=== PATIENT | female | born 1995 | race Hispanic/Latino ===

== ENCOUNTER 2022-12-15 11:56 | Emergency (ER) | payer BC, SELFPAY ==
[2022-12-15 12:06] VITALS: BP 158/109; PULSE 85; RESP 18; TEMP 37; O2SAT 96
--- NOTE | 2022-12-15 13:05 | ECG_ITS ---
Measurements Intervals [place]millan Rate: 67 P: 3 MA: 131 QRS: 28 QRSD: 89 T: 18 QT: 391 QTc: 413 Interpretive Statements SINUS RHYTHM MINIMAL Q WAVES- HIGH LATERAL LEADS BORDERLINE ECG NO PREVIOUS ECG AVAILABLE FOR COMPARISON Electronically Signed On 12-15-2022 14:03:34 CDT by Bin Bhatia D.O.
--- NOTE | 2022-12-15 13:05 | ED.ABDPAIN ---
HPI - Abdominal Pain General Chief Complaint: Abdominal Pain Stated Complaint: Nausea, chills, abd pain Time Seen by Provider: 12/15/22 12:43 History of Present Illness HPI narrative: 27-year-old female with a history of depression, PTSD presenting with several months of abdominal pain. Patient states that since July she has had intermittent abdominal pain and nausea and vomiting. States that sometimes she gets extremely lightheaded with these episodes and she will also have chills. States that last night she threw up and it was reddish in color but she states that she ate Tums just prior. States that this made her nervous so she came in for evaluation. She does not have a PCP and she has never seen GI. Currently she has some epigastric discomfort and nausea. No fevers or chills, chest pain, shortness of breath, cough, dysuria, hematuria, diarrhea, constipation. States that her LMP was approximately 1 week ago. No abnormal vaginal discharge or bleeding. Related Data Allergies Allergy/AdvReac Type Severity Reaction Status Date / Time No Known Allergies Allergy Verified 12/15/22 12:23 Review of Systems Review of Systems: All systems reviewed & are unremarkable except as noted in HPI and below Exam Narrative: GENERAL: Well-appearing, well-nourished, and in no acute distress. HEAD: Normocephalic, atraumatic. EYES: PERRLA and EOMI. ENT: Nares clear, no rhinorrhea or epistaxis. Mucous membranes moist. NECK: Supple. CHEST: Clear to auscultation. No respiratory distress. HEART: Regular rate and rhythm ABDOMEN: Soft, mild epigastric tenderness, no guarding or rebound EXTREMITIES: Normal range of motion. No edema. SKIN: Warm, dry, no rash. NEURO: No focal deficits. Alert and oriented x3. PSYCH: Normal mood and affect. Course Vital Signs Vital signs: Vital Signs Temperature 98.6 F 12/15/22 12:06 Pulse Rate 85 12/15/22 12:06 Respiratory Rate 18 12/15/22 12:06 Blood Pressure 158/109 H 12/15/22 12:06 Pulse Oximetry 96 12/15/22 12:06 Oxygen Delivery Room Air 12/15/22 12:06 Temperature 98.6 F 12/15/22 12:06 Pulse Rate 85 12/15/22 12:06 Respiratory Rate 18 12/15/22 12:06 Blood Pressure 158/109 H 12/15/22 12:06 Pulse Oximetry 96 12/15/22 12:06 Oxygen Delivery Room Air 12/15/22 12:06 MDM - Abdominal Pain MDM Narrative Medical decision making narrative: 27-year-old female presenting with 6 months of intermittent abdominal pain and nausea and vomiting. Patient is hypertensive, otherwise vitals are within normal limits. Exam is remarkable for the above. Plan for basic labs, fluids, IV Zofran and Pepcid. Likely discharge with PCP and GI follow-up. EKG per my interpretation shows normal sinus rhythm, normal axis and intervals, no ST elevations or depressions. Normal QTc. Blood work with mild leukocytosis. UA is contaminated. She denies any urinary symptoms. There is 4+ blood and some protein, patient states that she is at the end of her cycle. Advised that she follow-up with primary care regarding abnormal UA. On reevaluation, she states that she feels improved. Her nausea has resolved. Feel she is safe for outpatient management. We will get her started on Pepcid, will give prescription for as needed Zofran. Advise close PCP and GI follow-up. Appropriate return precautions were given. Patient voiced understanding and is agreeable with plan. Discharged in stable condition. Differential Diagnosis Differential diagnosis: Likely abdominal pain, gastroenteritis, pancreatitis and other (UTI, gastritis ) Lab Data 12/15/22 13:25 12/15/22 13:25 Labs: Lab Results 12/15/22 12/15/22 12/15/22 Range/Units 13:25 13:25 13:25 WBC 13.4 H (4.5-10.0) K/mm3 RBC 5.00 (4.2-5.4) M/mm3 Hgb 13.7 (12.0-15.0) g/dL Hct 41.0 (37.0-47.0) % MCV 82.0 (80-100) fl MCH 27.4 (26-34) pg MCHC 33.4 (32-36) g/dl RDW 13.8 (11.5-14.5) %
[2022-12-15] MEDS: SODIUM CHLORIDE 0.9% IV 1,000 ML 999 ML IV CONT (13:16)
[2022-12-15] MEDS: ONDANSETRON INJ 4 MG/2 ML VIAL IV PUSH (13:17)
[2022-12-15] MEDS: FAMOTIDINE 20 MG/2 ML VIAL IV PUSH (13:17)
[2022-12-15 13:41] LABS: Basophils Absolute Auto 0.1 K/mm3 (0.0-0.1); Basophils Percent Auto 0.6 % (0.2-1.2); Eosinophils Absolute Auto 0.2 K/mm3 (0-0.3); Eosinophils Percent Auto 1.6 % (0-4.4); Hemoglobin 13.7 g/dL (12.0-15.0); Immature Granulocyte Absolute 0.05 K/mm3 (0.00-0.031); Immature Granulocyte Percent A 0.4 % (0-0.5); Lymphocytes Absolute Auto 3.98 K/mm3 (0.9-3.2); Lymphocytes Percent Auto 29.6 % (18.3-44.2); Mean Corpuscular HGB Conc 33.4 g/dl (32-36); Mean Corpuscular Hemoglobin 27.4 pg (26-34); Mean Platelet Volume 10.3 fl (7.4-10.4); Monocytes Absolute Auto 0.6 K/mm3 (0.1-0.6); Monocytes Percent Auto 4.5 % (2.6-8.5); Neutrophils Absolute Auto 8.5 K/mm3 (1.3-6.7); Neutrophils Percent Auto 63.3 % (45.5-73.1); Platelet Count Result 348 k/mm3 (150-375); Red Cell Distribution Width 13.8 % (11.5-14.5); White Blood Count 13.4 K/mm3 (4.5-10.0)
[2022-12-15 13:51] LABS: Pregnancy On Board Control Positive; Urine Pregnancy Test Negative
[2022-12-15 14:03] LABS: Alanine Aminotransferase 25 U/L (6-35); Albumin Level 4.5 g/dL (3.5-5.1); Alkaline Phosphatase 106 U/L (38-126); Anion Gap 7 mmol/L (8-16); Aspartate Amino Transferase 22 U/L (14-36); Bilirubin,Total 0.6 mg/dL (0.2-1.3); Blood Urea Nitrogen 9 mg/dL (7-17); Calcium 9.1 mg/dL (8.4-10.2); Carbon Dioxide 26 mmol/L (22-30); Chloride 105 mmol/L (98-107); Estimated CRCL calculation 105 ml/min; Estimated Glomerular Filt Rate > 60; Glucose 98 mg/dL (65-110); Lipase 65 U/L (23-300); Potassium 3.5 mmol/L (3.4-5.0); Sodium 138 mmol/L (137-145)
[2022-12-15 14:10] LABS: Appearance Urine Cloudy (Clear); Bacteria Urine None Seen /hpf; Bilirubin Urine Negative (Negative); Blood Urine 3+ (Negative); Calcium Oxalate Crystals Urine Present /hpf; Color Urine Yellow (Yellow); Glucose Urine UA Negative (Negative); Ketones Urine Trace mg/dL (Negative); Leukocyte Esterase Ur Negative LEU/UL (Negative); Mucus Urine Present /lpf; Nitrate Urine Negative (Negative); Protein Urine 4+ mg/dL (Negative); RBC Urine 21-50 /hpf (0-2); Specific Grav Ur 1.031 (1.001-1.035); Squamous Epithelial Cell Urine Few /hpf (Few); Urobilinogen Urine 0.2 mg/dL (<2.0); pH Urine 6.5 (5.0-9.0)
[2022-12-15 14:13] LABS: Add Urine Microscopic? YES
[2022-12-15 15:45] VITALS: BP 121/87; PULSE 85; RESP 18; O2SAT 99
== END 2022-12-15 15:47 | disposition home or self-care (01) ==
PROVIDERS: Emergency Provider Emergency Medicine
DX: R10.13 Epigastric pain (principal); R11.2 Nausea with vomiting, unspecified
CPT/HCPCS: 36415; 80053; 81001; 81025; 83690; 85025; 87086; 87088; 93005; 96361; 96374; 96375; 99284; J2405; J7030

== ENCOUNTER 2023-01-01 09:04 | Outpatient (CLI) | payer BC, SELFPAY ==
--- NOTE | ~2023-01-01 | XR_ITS ---
Supine and upright views of the abdomen Clinical history: Abdominal pain, microscopic hematuria Findings: Bowel gas pattern is nonspecific. No evidence for obstruction or free air. No abnormal mass lesion or calcification is seen. IUD present. Osseous structures are intact. Impression: IUD present, otherwise unremarkable exam. Reviewed, dictated and finalized at [facility]. Impression: IUD present, otherwise unremarkable exam.
[2023-01-01 10:32] LABS: Hematocrit 38.9 % (37.0-47.0); Hemoglobin 12.9 g/dL (12.0-15.0); Mean Corpuscular HGB Conc 33.2 g/dl (32-36); Mean Corpuscular Volume 81.6 fl (80-100); Mean Platelet Volume 10.5 fl (7.4-10.4); Platelet Count Result 357 k/mm3 (150-375); Red Blood Count 4.77 M/mm3 (4.2-5.4)
[2023-01-01 10:36] LABS: Appearance Urine Clear (Clear); Bacteria Urine None Seen /hpf; Bilirubin Urine Negative (Negative); Blood Urine 2+ (Negative); Color Urine Yellow (Yellow); Glucose Urine UA Negative (Negative); Ketones Urine Negative (Negative); Leukocyte Esterase Ur Negative LEU/UL (Negative); Nitrate Urine Negative (Negative); Protein Urine 4+ mg/dL (Negative); RBC Urine 21-50 /hpf (0-2); Specific Grav Ur 1.027 (1.001-1.035); Squamous Epithelial Cell Urine None seen /hpf (Few); Urobilinogen Urine 0.2 mg/dL (<2.0); WBC Urine 0-5 /hpf
[2023-01-01 10:47] LABS: Alanine Aminotransferase 25 U/L (6-35); Albumin Level 4.5 g/dL (3.5-5.1); Alkaline Phosphatase 101 U/L (38-126); Amylase 82 U/L (30-110); Anion Gap 8 mmol/L (8-16); Aspartate Amino Transferase 24 U/L (14-36); Bilirubin,Total 0.5 mg/dL (0.2-1.3); Blood Urea Nitrogen 13 mg/dL (7-17); Calcium 9.4 mg/dL (8.4-10.2); Carbon Dioxide 26 mmol/L (22-30); Chloride 106 mmol/L (98-107); Estimated Glomerular Filt Rate > 60; Glucose 115 mg/dL (65-110); Lipase 79 U/L (23-300); Potassium 3.8 mmol/L (3.4-5.0); Sodium 140 mmol/L (137-145)
[2023-01-01 11:11] LABS: Erythrocyte Sedimentation Rate 22 mm/hr (0-20)
[2023-01-01 11:51] LABS: Add Urine Microscopic? YES
[2023-01-07 13:02] LABS: Gliadin AB, IgG <1.0 U/mL (<15.0); TTG IGA AB <1.0 U/mL (<15.0)
== END 2023-01-01 09:05 | disposition home or self-care (01) ==
PROVIDERS: Visit Provider Nurse Practitioner
DX: R11.0 Nausea (principal); R10.13 Epigastric pain; R31.29 Other microscopic hematuria; D72.829 Elevated white blood cell count, unspecified; R19.7 Diarrhea, unspecified; Z97.5 Presence of (intrauterine) contraceptive device
CPT/HCPCS: 36415; 74018; 80053; 81001; 82150; 83690; 84443; 85027; 85652; 86140; 86255; 86364

== ENCOUNTER 2023-01-09 09:22 | Outpatient (CLI) | payer BC, SELFPAY ==
--- NOTE | ~2023-01-09 | US_ITS ---
EXAMINATION: US abdomen complete DATE: 01/09/2023 10:11 INDICATION: Abdominal pain, hematuria TECHNIQUE: Multiple grayscale and Doppler ultrasound images of the abdomen were obtained. COMPARISON: None available FINDINGS: The head and body of the pancreas are normal. The pancreatic tail is obscured by bowel gas. The liver demonstrates increased echogenicity, heterogenous echotexture, and decreased through trans mission. No surface nodularity. Normal hepatopetal flow in the main portal vein. The gallbladder is n ormal with no abnormal wall thickening, pericholecystic fluid or stones. The normal common bile duct measures 4 mm. There was no sonographic Sanchez sign. The visualized portions of the aorta and inferio r vena cava are normal. The spleen is normal in appearance and measures 8.5 cm. The right kidney measures 12.9 x 6.3 x 5.7 cm . The left kidney is obscured by bowel gas. The kidneys demonstrate normal parenchymal echogenicity. There is no hydronephrosis. IMPRESSION: 1. Diffuse hepatic steatosis. Reviewed, dictated and finalized at location B.
== END 2023-01-09 09:23 | disposition home or self-care (01) ==
PROVIDERS: Visit Provider Nurse Practitioner
DX: D72.829 Elevated white blood cell count, unspecified (principal); E66.9 Obesity, unspecified; R10.13 Epigastric pain; R19.7 Diarrhea, unspecified; R31.29 Other microscopic hematuria; R11.2 Nausea with vomiting, unspecified; K76.0 Fatty (change of) liver, not elsewhere classified
CPT/HCPCS: 76700

== ENCOUNTER 2023-01-16 01:25 | Day surgery (SDC) | payer BC, SELFPAY ==
[2023-01-07 14:50] VITALS: BMI 39.9
[2023-01-16 10:24] VITALS: BP 146/97; PULSE 94; RESP 18; TEMP 36.2; O2SAT 99
[2023-01-16] MEDS: LACTATED RINGERS 1,000 ML 150 ML IV CONT (10:36)
--- NOTE | 2023-01-16 10:46 | P.PNAN_ITS ---
Anes - Initial Pre Proc Eval Procedure: Operation Date: 01/16/23 14:30 Proposed Procedures p Esophagogastroduodenoscopy & Colonoscopy - Brendan Dodson MD Date/Time: 01/16/23 10:46 Surgeon: Brendan Dodson MD Pre Op Diagnosis: epigastric pain, nausea, diarrhea Patient Data Age: 27 Gender: F Height: 1.6 m Weight: 98 kg Last Vital Signs Temp 97.1 F L 01/16/23 10:24 Pulse 94 01/16/23 10:24 Resp 18 01/16/23 10:24 BP 146/97 H 01/16/23 10:24 Pulse Ox 99 01/16/23 10:24 O2 Del Method Room Air 01/16/23 10:24 Allergies Allergy/AdvReac Type Severity Reaction Status Date / Time No Known Allergies Allergy Verified 01/16/23 10:17 Home Medications Medication Instructions Recorded Confirmed Type aripiprazole 5 mg tablet 5 mg PO BID 01/01/23 01/07/23 History buspirone 30 mg tablet 30 mg PO BID 01/01/23 01/07/23 History dicyclomine 20 mg tablet 20 mg PO .every 6 hours #120 tabs 01/01/23 01/07/23 Rx hydroxyzine HCl 50 mg tablet 50 mg PO QID PRN Anxiety 01/01/23 01/07/23 History mirtazapine 30 mg tablet 30 mg PO HS 01/01/23 01/07/23 History omeprazole 40 mg capsule,delayed 40 mg PO BID #60 caps 01/01/23 01/07/23 Rx release ondansetron 8 mg disintegrating 8 mg PO Q8H #60 tabs 01/01/23 01/07/23 Rx tablet fluvoxamine 100 mg tablet 100 mg PO HS 01/07/23 01/07/23 History lamotrigine 100 mg tablet 100 mg PO BID 01/07/23 01/07/23 History lisdexamfetamine 30 mg capsule 30 mg PO DAILY 01/07/23 01/07/23 History (Vyvanse) Patient hx anesthesia problems: none Family hx anesthesia problems: none Results Review: All pre-operative results and documents have been reviewed as part of the pre- operative evaluation. [facility] Past Medical History Medical History (Updated 01/01/23 @ 09:04 by Samanta Bai APRN) Diarrhea Epigastric pain Leukocytosis Microscopic hematuria Nausea Obesity Regurgitation of food Social History Social History Smoking status: Former smoker Substance use: current Substance use type: marijuana Last use: 2-3 times a week Living arrangements: alone Spiritual care concerns: No Anes - Eval Final PreProcedure Day of Procedure 01/16/23 10:46 Patient weight: obese Heart: regular rate and rhythm Lungs: clear to auscultation Airway: Mallampati scale class II Neurological: alert and oriented Last oral intake: >/= 8 hours ASA classification: III Emergent: no Anesthetic plan: proceed Anesthesia type and monitoring: general GIVS and standard monitoring Results Review: All pre-operative results and documents have been reviewed as part of the pre- operative evaluation. Informed Consent: The patient's anesthetic plan and its attendant risks and benefits were discussed with the patient/family/POA. Questions were solicited and answers provided to the satisfaction of the patient/family/POA.
--- NOTE | 2023-01-16 11:27 | SUR.OPER ---
EGD END: 1113 COLON START: 1118
[2023-01-16 11:29] VITALS: BP 113/63; PULSE 90; RESP 20; O2SAT 100
[2023-01-16 11:39] VITALS: BP 120/82; PULSE 89; RESP 20; O2SAT 100
[2023-01-16 11:49] VITALS: BP 119/78; PULSE 84; RESP 20; O2SAT 100
== END 2023-01-16 11:54 | disposition home or self-care (01) ==
PROVIDERS: Visit Provider Internal Medicine Gastroenterology
PROC: 0DJ08ZZ Inspection of Upper Intestinal Tract, Via Natural or Artificial Opening Endoscopic (ICD-10-PCS; CPT 43235; principal; 2023-01-16 14:30)
DX: R19.7 Diarrhea, unspecified (principal); K44.9 Diaphragmatic hernia without obstruction or gangrene; K64.8 Other hemorrhoids; F12.90 Cannabis use, unspecified, uncomplicated; Z87.891 Personal history of nicotine dependence; E66.9 Obesity, unspecified; Z68.38 Body mass index [BMI] 38.0-38.9, adult
CPT/HCPCS: 45378; 43239; 88305; J2704; J7120

== ENCOUNTER 2023-01-30 07:37 | Outpatient (CLI) | payer BC, SELFPAY ==
--- NOTE | ~2023-01-30 | NM_ITS ---
EXAM: NM gastric emptying study DATE: 01/30/2023 13:30 INDICATION: Nausea TECHNIQUE: A gastric emptying study was performed using the methodology of Santhosh STEELE, et al. J Nucl Med 2007; 48:568-572. The patient was given a meal consisting of 2 scrambled eggs labeled with 1.019 mCi Tc-99m sulfur colloid, 2 slices of toast, two packages of jam, and approximately 120 mL of water . Simultaneous anterior and posterior 1-min images of the abdomen were obtained with the patient supi ne at multiple time points over a total period of 4 hours. The geometric mean of anterior and posteri or views was determined, and the percentage retention was calculated for each time point. COMPARISON: None. FINDINGS: Gastric retention of the radiotracer-labeled meal was 86%, 57%, and 18% at the 1-hour, 2-hour, and 4- hour time points, respectively. With this technique, apparent rapid gastric emptying is suggested by <30% gastric retention at 1 hour. Delayed gastric emptying is defined by gastric retention of >90% at 1 hour, >60% retention at 2 hours, or >10% retention at 4 hours. IMPRESSION: 1. Delayed gastric emptying. Reviewed, dictated and finalized at location A.
== END 2023-01-30 07:38 | disposition home or self-care (01) ==
PROVIDERS: Visit Provider Internal Medicine Gastroenterology
DX: R11.0 Nausea (principal); K30 Functional dyspepsia
CPT/HCPCS: 78264; A9541

== ENCOUNTER 2023-02-12 07:43 | Outpatient (CLI) | payer BC, SELFPAY ==
--- NOTE | ~2023-02-12 | NM_ITS ---
EXAMINATION: NM hepatobiliary wo pharm DATE: 02/12/2023 11:00 CDT INDICATION: Nausea. Epigastric pain. COMPARISON: Ultrasound dated 01/09/2023. TECHNIQUE: 5 mCi Tc-99m mebrofenin (Choletec) was administered intravenously. Scintigraphic images o f the abdomen were obtained for one hour. At the 1 hour time point, the patient drank 8 oz Ensure, an d imaging was continued for 60 minutes. Gallbladder ejection fraction was calculated by the technolog ist. FINDINGS: There is normal clearance of radiotracer from the blood pool. There is homogeneous tracer u ptake by the liver. Activity progresses to the bowel and gallbladder. The gallbladder ejection fract ion is 22%. Note that with this technique, normal GBEF >= 33%. IMPRESSION: 1. Diminished gallbladder ejection fraction measuring 22%. Reviewed, dictated and finalized at location L.
== END 2023-02-12 07:44 | disposition home or self-care (01) ==
PROVIDERS: Visit Provider Internal Medicine Gastroenterology
DX: R11.0 Nausea (principal); R10.13 Epigastric pain
CPT/HCPCS: 78226; A9537

== ENCOUNTER 2023-02-23 01:13 | Day surgery (SDC) | payer BC, SELFPAY ==
[2023-02-20 08:22] VITALS: BMI 40.0
--- NOTE | 2023-02-20 08:22 | PC.NURSE ---
Report to the Outpatient Waiting Room, entrance under the green pavilion located off [facility], at time 1000 on date 02/23/23. Planned Procedure Time: 1200. Time changes happen often and if your time is changed the preop area will call you the afternoon before. - You and your visitor will be asked to self-screen and do not enter if you have any COVID symptoms. - A mask is optional within the hospital at this time. Patients may have clear liquids (water, carbonated beverages, clear teas, apple juice) until 3 hours prior to surgery with a maximum of 20 ounces. - No food from midnight until time of surgery Take the following medications with a SIP of water the morning of surgery: ABILIFY, BUSPIRONE, LAMOTRIGINE, HYDROXYZINE IF NEEDED DO NOT STOP ANY OF YOUR OTHER PRESCRIPTION MEDICATIONS PRIOR TO SURGERY EXCEPT THE FOLLOWING Medications to discontinue per physician: N/A Date to take last dose: N/A Please no make-up, nail greenlandic, hairspray, perfume, deodorant, or body powder the day of surgery. No jewelry (including any body piercings) or valuables the day of surgery, leave them at home. Please take a shower or bath the night before, or the morning of, surgery with an antibacterial soap (HIBICLENS). Wear comfortable, loose fitting clothing. - Jewelry must be removed prior to entering the operating room. Rings and piercings that are not removed may be cut off. - The hospital will not accept responsibility for valuables. - Please leave all valuables, including medications, at home the day of surgery. If you are going home after surgery, a licensed limb driver must drive you home. - NO public transportation without another adult if you receive anesthesia. - We recommend that an adult stay with you for 24 hours following discharge. - We also recommend that you do not drive, make important decision, drink alcoholic beverages, or take any drugs that were not prescribed by your health care provider for at least 24 hours after your discharge time. Follow any additional instructions given to you from your surgeon. If you or anyone in your household have experienced Covid symptoms in the past week, please notify your surgeon or the nurse liaison at the phone number below for possible testing. Telephone instructions given to PT - LEWIS EDGAR and asked if any additional questions and then verbalized understanding. Patient advised to call surgeon office or pre surgery nurse liaison [phone] if any additional questions.
[2023-02-23] VITALS (10 sets, daily range): BP systolic 141–162; BP diastolic 86–102; PULSE 74–114; RESP 14–21; TEMP 36–36.8; O2SAT 99–100
[2023-02-23] MEDS: ACETAMINOPHEN 500 MG TABLET 1000 MG PO (10:44)
[2023-02-23] MEDS: KETOROLAC 15 MG/ML VIAL (*BKC) IV PUSH (10:57)
--- NOTE | 2023-02-23 11:03 | WPDANESEPPF ---
Anes - Initial Pre Proc Eval Procedure: Operation Date: 02/23/23 12:00 Proposed Procedures p Laparoscopic Cholecystectomy - Harika Tilley MD Date/Time: 02/23/23 11:03 Surgeon: Harika Tilley MD Pre Op Diagnosis: Chr Cholecystitis Patient Data Age: 27 Gender: F Height: 1.6 m Weight: 100.5 kg Last Vital Signs Temp 36.8 C 02/23/23 10:22 Pulse 86 02/23/23 10:22 Resp 16 02/23/23 10:22 BP 147/98 H 02/23/23 10:22 Pulse Ox 100 02/23/23 10:22 O2 Del Method Room Air 02/23/23 10:22 Allergies Allergy/AdvReac Type Severity Reaction Status Date / Time No Known Allergies Allergy Verified 02/23/23 10:39 Home Medications Medication Instructions Recorded Confirmed Type aripiprazole 5 mg tablet 5 mg PO BID 01/01/23 02/23/23 History buspirone 30 mg tablet 30 mg PO BID 01/01/23 02/23/23 History dicyclomine 20 mg tablet 20 mg PO .every 6 hours #120 tabs 01/01/23 02/20/23 Rx hydroxyzine HCl 50 mg tablet 50 mg PO QID PRN Anxiety 01/01/23 02/23/23 History mirtazapine 30 mg tablet 30 mg PO HS 01/01/23 02/23/23 History omeprazole 40 mg capsule,delayed 40 mg PO BID #60 caps 01/01/23 02/23/23 Rx release ondansetron 8 mg disintegrating 8 mg PO Q8H #60 tabs 01/01/23 02/20/23 Rx tablet fluvoxamine 100 mg tablet 100 mg PO HS 01/07/23 02/23/23 History lamotrigine 100 mg tablet 100 mg PO BID 01/07/23 02/23/23 History lisdexamfetamine 30 mg capsule 30 mg PO DAILY 01/07/23 02/23/23 History (Vyvanse) mv-mn no.97-folic 180 mcg-dha 25 1 tablet PO DAILY 02/23/23 02/23/23 History mg-herb no.293 25 mg chewable tablet (Alive Daily Support ) Patient hx anesthesia problems: none Family hx anesthesia problems: none Results Review: All pre-operative results and documents have been reviewed as part of the pre-operative evaluation. [facility] Past Medical History Medical History Biliary dyskinesia Diarrhea Epigastric pain Gastroparesis Hepatic steatosis Hiatal hernia Irritable bowel syndrome with diarrhea Leukocytosis Microscopic hematuria Nausea Obesity Regurgitation of food Surgical History Surgical History (Updated 02/23/23 @ 11:03 by Moustapha Marion MD) H/O colonoscopy History of esophagogastroduodenoscopy (EGD) Social History Social History Years smoked: 3 Smoking status: Former smoker Tobacco type: cigarettes Smoking end date: 11/05/22 Alcohol intake: current Alcohol use details: VERY RARE Substance use: current Substance use type: marijuana Last use: 2-3 times a week Living arrangements: with friend(s) Additional living arrangements comments: BOYFRIEND Spiritual care concerns: No Anes - Eval Final PreProcedure Day of Procedure 02/23/23 11:03 Patient weight: obese Heart: regular rate and rhythm Lungs: clear to auscultation Airway: Mallampati scale class II Neurological: alert and oriented Last oral intake: >/= 8 hours ASA classification: III Emergent: no Anesthetic plan: proceed Anesthesia type and monitoring: general ETT and standard monitoring Results Review: All pre-operative results and documents have been reviewed as part of the pre-operative evaluation. Informed Consent: The patient's anesthetic plan and its attendant risks and benefits were discussed with the patient/family/POA. Questions were solicited and answers provided to the satisfaction of the patient/family/POA.
[2023-02-23] MEDS: LACTATED RINGERS 1,000 ML 30 ML IV CONT ×2 (11:06→13:19)
--- NOTE | 2023-02-23 11:40 | WPDHPUPDATE1 ---
History and Physical Update Update Date/Time: 02/23/23 11:40 History and Physical has been reviewed, including an updated exam of the patient. There are NO changes in the patient's condition. Risks, benefits, and alternatives have been discussed and questions answered. Patient agrees to proceed with procedure.
[2023-02-23] MEDS: ceFAZolin 2 GM/D5W 50 ML 2 GM/50 ML BAG IVPB (12:02)
[2023-02-23] MEDS: BUPIVACAINE/EPINEPHRINE 0.5% 50 ML VIAL 30 ML INFILTRATE (12:21)
--- NOTE | 2023-02-23 13:02 | P.OP_ITS ---
Procedure Note - Detailed Date of Procedure 02/23/23 Pre-op Diagnosis chronic cholecystitis Post-op Diagnosis Same Procedure Performed Laparoscopic cholecystectomy Surgeon Harika Tilley MD Anesthesia General Indications 27 y/o F c chronic cholecystitis, biliary dyskinesia Findings moderate cholecystitis Description of Procedure The patient was taken to the operating room placed in the supine position. Afte r adequate induction of general anesthesia, the patient was prepped and draped in normal sterile fashion. A time-out was then performed to verify the patient's identity as well as the procedure being performed. I then made a 5 mm incision in the infraumbilical region. Through this, a Veress needle was placed into the peritoneal cavity and CO2 gas was then insufflated. After adequate pneumoperitoneum was achieved, the Veress needle was removed and a 5 mm optiview trocar was placed through this incision under direct visualization. I then placed the laparoscope through this trocar site and under direct visualization placed a further 12 mm subxiphoid port as well as 2 additional 5 mm ports in the right upper abdomen. The gallbladder was then identified and was noted to be moderately inflamed and distended. I was able to place a grasper at the dome of the gallbladder and this was retracted anterior and cephalad up over the liver. A 2nd retractor was then placed at the infundibulum and retracted laterally, this allowed visualization of the triangle of Calot. I then was able to visualize the cystic duct in its entirety from its proximal insertion into the gallbladder, to its distal junction with the common hepatic/common bile duct junction. At this point, I carefully skeletonized the proximal cystic duct with the [place] dissector. I then clipped and transected the proximal cystic duct. Next I visualized the cystic artery. Again the artery was skeletonized, clipped, and transected. I then used the Bovie cautery to take down the peritoneal attachments of the gallbladder off the liver bed. This was somewhat difficult given the amount of inflammation in the posterior space. Once the gallbladder specimen was completely detached, an endo-pouch was placed through t he 12 mm port site. I then placed the gallbladder specimen into the Endo pouch and removed the endo-pouch from the 12 mm port site. The specimen will now be sent to pathology for further review. I then copiously irrigated the right upper quadrant. Some mild oozing was noted in the liver bed and this was controlled with the bovie cautery. Hemostasis was noted in the liver bed, the clips were noted to be in good position on both the cystic duct stump and the cystic artery stump. No other pathology was noted in the right upper quadrant. I then moved the laparoscope to the subxiphoid port. No iatrogenic injury or other pathology was noted in the lower abdomen. I then closed the 12 mm trocar site under direct visualization using the Yves cone and 0 Vicryl suture. At this point, the abdomen was desufflated and all ports removed. All port sites were then closed with 4.O Monocryl subcuticular sutures. Dermabond was placed on each incision. The patient tolerated the procedure well, was extubated in the operating room postoperative and will be transferred to the recovery room in stable condition Estimated Blood Loss 10 Drains No Packing No Pathology Yes Complications No immediate complications Condition Stable Disposition PACU [facility] Billing Surgery - Charge Forward: Surgery Billing
[2023-02-23] MEDS: fentaNYL CITRATE INJ (*CRX) 100 MCG/2 ML VIAL 25 MCG IV PUSH ×6 (13:05→13:37)
[2023-02-23] MEDS: oxyCODONE HCL (*CRX) 5 MG TAB IR PO (14:18)
== END 2023-02-23 14:56 | disposition home or self-care (01) ==
PROVIDERS: Visit Provider Surgery
PROC: 0FT44ZZ Resection of Gallbladder, Percutaneous Endoscopic Approach (ICD-10-PCS; CPT 47562; principal; 2023-02-23 12:00)
DX: K81.1 Chronic cholecystitis (principal); K58.0 Irritable bowel syndrome with diarrhea; K31.84 Gastroparesis; K76.0 Fatty (change of) liver, not elsewhere classified; Z87.891 Personal history of nicotine dependence; F12.90 Cannabis use, unspecified, uncomplicated; E66.9 Obesity, unspecified; Z68.39 Body mass index [BMI] 39.0-39.9, adult
CPT/HCPCS: 47562; 36415; 86850; 86900; 86901; 88304; A9270; J0690; J1100; J1885; J2250; J2405; J2704; J2710; J3010; J7030; J7120